=== PATIENT | male | born 1950 | race Caucasian/White ===

== ENCOUNTER 2021-08-21 09:33 | Outpatient (CLI) | payer MEDICARE, OTHER ==
--- NOTE | 2021-08-21 14:44 | XRAY Report ---
PROCEDURE: Shoulder 3 View LT INDICATIONS: LT SHOULDER PAIN TECHNIQUE: 3 views of the shoulder were acquired. COMPARISON: None. FINDINGS: Bones: No fractures or dislocations. No suspicious bony lesions. Visualized ribs appear intact. Soft tissues: No suspicious soft tissue calcifications. IMPRESSION: No acute osseous abnormality. Reviewed by: Jack Mcgrath MD on 08/21/2021 2:42 PM PDT Approved by: Jack Mcgrath MD on 08/21/2021 2:42 PM PDT Station ID: [id number]
== END 2021-08-21 09:34 | disposition home or self-care (01) ==
LOC: DI 09:33
PROVIDERS: ATTEND Physician Assistant
DX: M25.512 Pain in left shoulder (principal)

== ENCOUNTER 2021-12-07 15:55 | Outpatient (CLI) | payer MEDICARE, OTHER ==
--- NOTE | 2021-12-07 16:55 | XRAY Report ---
PROCEDURE: Ankle 3 View LT INDICATIONS: ANKLE JOINT PAIN, LEFT TECHNIQUE: 3 views of the ankle were acquired. COMPARISON: None. FINDINGS: Bones: Oblique fracture through distal fibular shaft is seen without significant displacement or angu lation of fracture site. No other fracture is noted. No dislocation. Ankle mortise is normally aligne d. No suspicious bony lesions. Soft tissues: Significant lateral ankle soft tissue swelling is seen. No tibiotalar joint effusion. Achilles tendon appears normal. IMPRESSION: Nondisplaced oblique fracture through distal fibular shaft with overlying soft tissue sw elling. No other fracture or dislocation. Intact ankle mortise. Reviewed by: Baldev Somers MD on 12/07/2021 4:54 PM PDT Approved by: Baldev Somers MD on 12/07/2021 4:54 PM PDT Station ID: [id number]
--- NOTE | 2021-12-07 18:26 | XRAY Report ---
PROCEDURE: Knee 3 View LT INDICATIONS: ANKLE JOINT PAIN, LEFT TECHNIQUE: 3 views of the left knee(s) were acquired. COMPARISON: None. FINDINGS: Bones: No fractures or dislocations. No suspicious bony lesions. Soft tissues: No joint effusion. No suspicious soft tissue calcifications. IMPRESSION: No fracture or dislocation. Reviewed by: Suni Cruz MD on 12/07/2021 5:25 PM MIRIAM Approved by: Suni Cruz MD on 12/07/2021 5:25 PM AKSOPHIA Station ID: [id number]
== END 2021-12-07 15:56 | disposition home or self-care (01) ==
LOC: DI 15:55
PROVIDERS: ATTEND Registered Nurse
DX: S82.435A Nondisplaced oblique fracture of shaft of left fibula, initial encounter for closed fracture (principal); M25.562 Pain in left knee

== ENCOUNTER 2021-12-14 09:36 | Outpatient (CLI) | payer MEDICARE, OTHER ==
--- NOTE | 2021-12-14 13:37 | XRAY Report ---
PROCEDURE: Ankle 3 View LT INDICATIONS: LEFT ANKLE FRACTURE TECHNIQUE: 3 views of the ankle were acquired. COMPARISON: 12/07/2021 FINDINGS: Bones: Minimally displaced spiral fracture of the distal fibula at the level of the syndesmosis is r edemonstrated. There is subtle widening of the lateral ankle mortise better seen on the current study . Wispy calcifications are present distal to the medial malleolus, possibly tiny cortical avulsions. Soft tissues: No tibiotalar joint effusion. Achilles tendon appears normal. IMPRESSION: 1. Possible slight widening of the lateral ankle mortise. 2. Minimally displaced spiral fracture of the distal fibula at the syndesmosis. Reviewed by: Suni Cruz MD on 12/14/2021 1:36 PM PDT Approved by: Suni Cruz MD on 12/14/2021 1:36 PM PDT Station ID: [id number]
== END 2021-12-14 09:37 | disposition home or self-care (01) ==
LOC: DI.WOS 09:36
PROVIDERS: ATTEND Orthopaedic Surgery
DX: S82.832D Other fracture of upper and lower end of left fibula, subsequent encounter for closed fracture with routine healing (principal)

== ENCOUNTER 2021-12-21 14:27 | Outpatient (CLI) | payer MEDICARE, OTHER ==
--- NOTE | 2021-12-21 16:46 | XRAY Report ---
PROCEDURE: Ankle 3 View LT INDICATIONS: LEFT ANKLE FRACTURE TECHNIQUE: 3 views of the ankle were acquired. COMPARISON: Left ankle radiographs 12/14/2021 FINDINGS: Redemonstrated mildly displaced acute oblique distal fibular fracture, fracture plane at the level of the tibial plafond . Alignment is similar to before. Ankle mortise appears symmetric. A plantar calc aneal spur is present. IMPRESSION: Similar appearance of the previously demonstrated lateral malleolus fracture. Reviewed by: Jack Mcgrath MD on 12/21/2021 4:45 PM PST Approved by: Jack Mcgrath MD on 12/21/2021 4:45 PM PST Station ID: [id number]
== END 2021-12-21 14:28 | disposition home or self-care (01) ==
LOC: DI.WOS 14:27
PROVIDERS: ATTEND Orthopaedic Surgery
DX: S82.62XD Displaced fracture of lateral malleolus of left fibula, subsequent encounter for closed fracture with routine healing (principal)

== ENCOUNTER 2022-01-23 14:51 | Outpatient (CLI) | payer MEDICARE, OTHER ==
--- NOTE | 2022-01-23 16:18 | XRAY Report ---
PROCEDURE: Ankle 3 View LT INDICATIONS: LEFT ANKLE FRACTURE TECHNIQUE: 3 views of the ankle were acquired. COMPARISON: 12/21/2021 FINDINGS: Bones: There is further healing of spiral fracture of the distal fibula at the syndesmosis with furth er blurring of the fracture plane and cloudlike periostitis, particularly seen posteriorly. Ankle mor tise remains intact. Unfused os trigonum. Calcaneal spurring. Soft tissues: No tibiotalar joint effusion. Achilles tendon appears normal. IMPRESSION: 1. Further visible healing of spiral distal fibular fracture. Reviewed by: Suni Cruz MD on 01/23/2022 4:17 PM PST Approved by: Suni Cruz MD on 01/23/2022 4:17 PM PST Station ID: [id number]
== END 2022-01-23 14:52 | disposition home or self-care (01) ==
LOC: DI.WOS 14:51
PROVIDERS: ATTEND Orthopaedic Surgery
DX: S82.65XD Nondisplaced fracture of lateral malleolus of left fibula, subsequent encounter for closed fracture with routine healing (principal)

== ENCOUNTER 2022-07-17 09:36 | Outpatient (CLI) | payer MEDICARE, BC ==
--- NOTE | 2022-07-17 10:29 | Sleep Patient Instructions ---
Sleep Center Visit Summary - Patient Visit Information Reason for Visit: Initial consult to establish care for PAP therapy - Patient Instructions Additional Instructions: You will continue with CPAP therapy with pressure set at 7-10 cmH2O. A supply prescription will be updated with your DME. We encourage you to continue to try to lose weight. Please follow up with the sleep care office in 1 year. - Clinic Information Contact[facility] [address] [place] [address] [email or web address] T: [phone]
--- NOTE | 2022-07-17 10:36 | SLEEP CARE CONSULTATION ---
Information from patient questionnaire entered by Dianne Pugh. I have reviewed and concur with the information entered by Dianne Pugh. This document represents the service I personally performed and the decisions made by me, Vianca Barton ARNP. History of Present Illness Service Date and Time: 07/17/2022 0936 Reason for Visit: New patient, Previously diagnosed sleep apnea, sleep apnea on CPAP therapy Chief Complaint: reports: Other (UPDATE SUPPLIES) Date of Onset: 20+YRS Usual bedtime: 1030PM Time it takes to fall asleep: 20-30 Snores at night: No Number of times waking at night: 1-2 Reasons for waking at night: reports: Bathroom Toss, Turn, or Twitch while sleeping: Yes Recalls having dreams: Yes Usually gets out of bed at: 930-10AM Feels refreshed in the morning: Yes Morning headache: No Sleepy or fatigued during the day: Yes Ever fallen asleep while driving: No Takes day naps: Yes Dreams during day naps: Yes Prior sleep studies: Yes Year and Where: 1999[place]? Additional HPI information: MARK DICKENS was previoualy diagnosed to have mild, AHI 16, obstructive sleep apnea-hypopnea syndrome and comes in today to establish care for CPAP therapy. - Parasomnia Symptoms Ever been unable to move upon waking from sleep: No Walks in sleep: No Talks in sleep: Yes Ever acted out dreams in sleep: Yes Ever felt weak in the knees when startled or emotional: No Bothered by creepy, crawly, restless sensations in legs: No Problems with memory or concentration: No CPAP Compliance Data - Data Reviewed with Patient Average duration of nightly device use: 9 hours Compliance rate %: 100 (pt states uses every night and with naps) Current pressure setting (cmH2O): 7-10 Average residual AHI: 0.2 Compliance data discussion: He has a Leena II that he purchased because of the recall. We were able to get limited data from the machine. He has been sent a replacement by [employer] but has not started using it. He gets his supplies from [employer] for the Leena. He is set up with [employer] for other supplies. He is using a Dreamwear nasal cushion, large cushion size, headgear medium. He does have back up supplies. Subjective Patient concerns: reports: dry mouth, nose, throat (occasional). denies: ae rophagia, mask discomfort, air blowing in eyes, mask leak noise, condensation in mask/hose, nasal congestion, epistaxis Observed to snore while using device: No Current pressure setting perceived as: comfortable On therapy, patient: reports: sleeping better, awakening more refreshed, being more awake and alert during the day, more rested overall. denies: drowsiness while driving Initial [place] Sleepiness Scale score: 3 (07/17/22) Past Medical History Past Medical History: reports: Diabetes, Stroke (unsure of timing, found out of the fact), Coronary Heart Disease, GERD, Other (ESSENTIAL TREMORS) Social History The patient's occupation is a RE. Patient is and lives in [place]. Have you smoked in the past 12 months: No Alcohol use: Yes Alcohol amount and frequency: 2GLASSES PER MONTH Caffeine use: Yes Caffeine amount and frequency: 1XDAILY Family History Family history of sleep disordered breathing: Yes Family Hx Sleep Apnea: Sibling: Sleep apnea - Treated Allergies and Home Medications Known drug allergies: No Drug allergies reviewed: Yes Home medication list reviewed: Yes (see updated list in EMR) Allergy and home medication list: Allergies No Known Drug Allergies Allergy (Verified 07/16/22 09:34) Review of Systems Weight loss over past 5 years: 20 Cardiovascular: denies: high blood pressure Gastrointestinal: reports: heartburn Urinary: reports: frequency Neurological: denies: headaches Psychiatric: denies: anxiety, depression Ear/Nose/Throat: reports: nasal congestion, injury to nose Musculoskeletal: reports: joint pain Immunologic: reports: sneezing Physical Exam Vital signs obtained and entered by: DIANNE Velázquez MA Blood Pressure: 98/60 (left arm) Cuff size: regular Heart Rate: 57 O2 Saturation: 98 Height: 6 ft 1 in Weight: 198 lb 6.4 oz Body Mass Index: 26.2 BMI Classification: Overweight Neck circumference: 16.25 Heart: regular rate and rhythm Lungs: clear bilaterally Impression and Plan 1. Obstructive Sleep Apnea-Hypopnea Syndrome, mild, with good treatment compliance and good apnea control. On CPAP therapy, the patient has better sleep quality and is more rested overall. Mark purchased a Leena II because his CPAP was on the recall with [employer]. He states about 4 months ago he received his new replacement from [employer] but he has not yet started using it. He wanted to wait until his appointment before he switched to the other machine. He also tells me he has a travel machine that he bought about 4 years ago that he uses on occasion. Patient's apnea severity and rationale for treatment to reduce apnea, improve sleep quality and reduce cardiovascular and cerebrovascular events was reviewed. I also reviewed the benefit of consistent device use of CPAP for cardiac disease, cerebrovascular disease, diabetes and gastric reflux. 2. Overweight, unspecified. Currently patients BMI is 26.2. He has been losing weight. Obesity increases the risk of apnea, CPAP pressure requirements and overall health risks especially cardiovascular and diabetes. Thus patient is advised to continue to try to lose weight. * Continue auto CPAP pressure at 7-10 cmH2O * Update supplies prescription * Notify me if snoring with mask or feeling that the pressure is too much or too little * Attempt to lose weight * Call this office if any problems using CPAP * Return for follow up in 1 year, or sooner if concerns arise Counseling Topics: Spare mask, Weight loss health impact Visit Type: In Office Time Spent with Patient (minutes): 31 Provider Statement: I spent 100% of the Face to Face Visit with the patient with greater than 50% spent counseling the patient and coordination of care.
[2022-07-17 10:38] VITALS: BP 98/60
== END 2022-07-17 09:37 | disposition home or self-care (01) ==
LOC: SC 09:36
PROVIDERS: ATTEND Nurse Practitioner Family
DX: G47.33 Obstructive sleep apnea (adult) (pediatric) (principal); E66.3 Overweight; Z68.26 Body mass index [BMI] 26.0-26.9, adult
CPT/HCPCS: 99203; G0463; 99212

== ENCOUNTER 2023-03-20 08:41 | Day surgery (SDC) | payer MEDICARE, BC ==
[2023-03-20] MEDS: LACTATED RINGERS 1,000 ML IV ONE ×2 (09:27→10:43)
[2023-03-20] MEDS ORDERED: PROPOFOL 500 MG/50 ML 0 MG/0 ML VIAL ONE (09:35)
--- NOTE | 2023-03-20 09:41 | ANESTHESIA ---
Pre-Anesthesia VS, & Labs - Diagnosis history of colon polyp - Procedure colonoscopy Height: 6 ft 1 in Weight (kg): 84.9 kg Body Mass Index: 24.7 BMI Classification: Normal - NPO >8 hours - Lab Results Current Lab Results: Laboratory Tests 03/20/23 09:18: POC Whole Bld Glucose 97 Lab results reviewed: Yes Home Medications and Allergies Home Medications: Ambulatory Orders Topiramate [Topiramate ER] 100 mg PO DAILY 03/13/23 metFORMIN [Glucophage] 850 mg PO BID 03/13/23 Clopidogrel Bisulfate [Plavix] 75 mg PO DAILY 11/30/15 Pantoprazole [Protonix] 40 mg PO DAILY 11/30/15 Aspirin [Vazalore] 81 mg PO DAILY 07/17/22 Primidone 600 mg PO DAILY 07/17/22 Rosuvastatin Calcium [Crestor] 20 mg PO DAILY 07/17/22 lisinopriL [Zestril] 5 mg PO DAILY 07/17/22 Topiramate [Topiramate ER] 100 mg PO DAILY 03/13/23 metFORMIN [Glucophage] 850 mg PO BID 03/13/23 Allergies/Adverse Reactions: Allergies Allergy/AdvReac Type Severity Reaction Status Date / Time No Known Drug Allergies Allergy Verified 07/17/22 09:43 Anes History & Medical History - Anesthetic History Anesthesia Complications: reports: No previous complications Family history of Anesthesia Complications: Denies Family history of Malignant Hyperthermia: Denies - Medical History Cardiovascular: reports: [place], Other (stents, had recent negative workup) Pulmonary: reports: Sleep apnea, CPAP use Gastrointestinal: reports: GERD, Colon polyps Urinary: reports: None Neuro: reports: Tremors Musculoskeletal: reports: None Endocrine/Autoimmune: reports: Type 2 diabetes Skin: reports: None Smoking Status: Never smoker Psychosocial: reports: No issues indicated History of Cancer?: No - Surgical History General: reports: Colonoscopy Orthopedic: reports: Other Exam General: Alert, Oriented x3, Cooperative, No acute distress Dental: WNL Mouth Openin Fingerbreadth Neck Mobility: Normal Mallampati classification: II Thyromental Distance: 4-6 cm Mental/Cognitive Status: Alert/Oriented X3, Normal for patient Plan Anesthesia Type: General Consent for Procedure(s) Verified and Reviewed: Yes Code Status: Attempt Resuscitation ASA classification: 3-Severe systemic disease Is this case an emergency?: No
[2023-03-20] MEDS ORDERED: PROPOFOL 500 MG/50 ML 500 MG/50 ML VIAL ONE (09:53)
[2023-03-20 11:15] VITALS: BP 111/74; O2SAT 99
--- NOTE | 2023-03-20 14:19 | ANESTHESIA POST OP EVALUATION ---
Anesthesia Post Eval - Post Anesthesia Eval Vitals: Last Vital Signs Temp 36.0 C L 03/20/23 11:00 Pulse 58 L 03/20/23 11:00 Resp 16 03/20/23 11:00 BP 111/74 03/20/23 11:00 Pulse Ox 99 03/20/23 11:00 O2 Flow Rate CV Function Including HR & BP: Stable Pain Control: Satisfactory Nausea & Vomiting: Negative Mental Status: Baseline Respiratory Status: Airway Patent Hydration Status: Satisfactory Anesthesia Complications: None
== END 2023-03-20 08:42 | disposition home or self-care (01) ==
LOC: SDS 08:41
PROVIDERS: ATTEND Surgery
PROC: 0DBL8ZZ Excision of Transverse Colon, Via Natural or Artificial Opening Endoscopic (ICD-10-PCS; 2023-03-20)
PROC: 0DBN8ZZ Excision of Sigmoid Colon, Via Natural or Artificial Opening Endoscopic (ICD-10-PCS; 2023-03-20)
PROC: 0DBM8ZZ Excision of Descending Colon, Via Natural or Artificial Opening Endoscopic (ICD-10-PCS; principal; 2023-03-20 11:00)
DX: Z12.11 Encounter for screening for malignant neoplasm of colon (principal); D12.5 Benign neoplasm of sigmoid colon; D12.3 Benign neoplasm of transverse colon; D12.4 Benign neoplasm of descending colon; K57.30 Diverticulosis of large intestine without perforation or abscess without bleeding; I25.2 Old myocardial infarction; I25.10 Atherosclerotic heart disease of native coronary artery without angina pectoris; E11.9 Type 2 diabetes mellitus without complications; G47.33 Obstructive sleep apnea (adult) (pediatric); Z79.84 Long term (current) use of oral hypoglycemic drugs
CPT/HCPCS: 45385; J7120

== ENCOUNTER 2023-07-23 13:37 | Outpatient (CLI) | payer MEDICARE, BC ==
--- NOTE | 2023-07-23 14:21 | Sleep Patient Instructions ---
Sleep Center Visit Summary - Patient Visit Information Reason for Visit: Annual follow-up - Patient Instructions Additional Instructions: You will continue with CPAP therapy with pressure set at 7-10 cmH2O. A supply prescription will be updated with your DME. Please follow up with the sleep care office in 1 year. - Clinic Information Contact: [facility] [address] [place] [address] [email or web address] T: [phone]
--- NOTE | 2023-07-23 14:25 | SLEEP CARE CONSULTATION ---
Information from patient questionnaire entered by Dianne Pugh. I have reviewed and concur with the information entered by Dianne Pugh. This document represents the service I personally performed and the decisions made by me, Vianca Barton ARNP. History of Present Illness Service Date and Time: 07/23/2023 1337 Previous diagnosis: Moderate, Obstructive Sleep Apnea-Hypopnea Syndrome AHI: 16 (in 04/28/97) Reason for follow up: annual (LAST SEEN 07/2022 NEED CPAP) Equipment type: CPAP (Dreamstation, recertified) Equipment obtained from: [employer] (getting supplies) Mask style: Nasal Mask brand: [employer]ironics (Dreamwear) Backup mask available: Yes Last cushion change: 1 week Prior sleep studies: Yes Year and Where: 1997 [place]? HPI additional information: MARK DICKENS was diagnosed to have moderate, AHI 16, obstructive sleep apnea-hypopnea syndrome and returned today for CPAP therapy annual follow-up. Sleep Study - Results Prior sleep studies: Yes Year and Where: 1997 [place]? CPAP Compliance Data - Data Reviewed with Patient Average duration of nightly device use: 9 hours 47 mins Compliance rate %: 98.4 (01/20/2023-07/22/2023; 181/184 days used) Current pressure setting (cmH2O): 4-20 (should be 7-10) Humidity settin Heated hose settin Average residual AHI: 2.4 Average large leak: 46 secs Compliance data discussion: He has a travel CPAP, [employer]. Subjective Missed days of use due to: reports: travel (for 3 days) Patient concerns: denies: aerophagia, mask discomfort, air blowing in eyes, mask leak noise, condensation in mask/hose, nasal congestion, dry mouth, nose, throat , epistaxis Observed to snore while using device: No Current pressure setting perceived as: comfortable On therapy, patient: reports: sleeping better, awakening more refreshed, being more awake and alert during the day, more rested overall. denies: drowsiness while driving Initial [place] Sleepiness Scale score: 3 (07/17/22) Current [place] Sleepiness Scale score: 3 Allergies and Home Medications Known drug allergies: No Drug allergies reviewed: Yes Home medication list reviewed: Yes (no changes) Allergy and home medication list: Allergies No Known Drug Allergies Allergy (Verified 07/19/23 13:01) Review of Systems Review of systems same as previous: Yes (cardiac disease, GERD, Apnea, Essential tremors) Physical Exam Vital signs obtained and entered by: VIANCA AVALOS Blood Pressure: 105/62 Cuff size: regular (left arm) Heart Rate: 55 O2 Saturation: 95 Height: 6 ft 1 in Weight: 197 lb 3.2 oz Weight change since last visit: 1 lb loss Body Mass Index: 26.0 BMI Classification: Overweight Impression and Plan 1. Obstructive Sleep Apnea-Hypopnea Syndrome, moderate, with good treatment compliance and god apnea control. On CPAP therapy, the patient has better sleep quality and is more rested overall. He says the only missing days was when he went on vacation and did not take the battery for his travel machine because he was flying and and think he could protect the battery on the plane. Patient has significant improvement of their sleep apnea and is satisfied with current CPAP therapy. Patient denies problems with oral dryness, nasal congestion, epistaxis, skin irritation or aerophagia. Patient's apnea severity and rationale for treatment to reduce apnea, improve sleep quality and reduce cardiovascular and cerebrovascular events was reviewed. I also reviewed the benefit of consi stent device use of CPAP for hypertension, cardiac disease, cerebrovascular disease and gastric reflux. 2. Overweight, unspecified. Currently patients BMI is 26. Obesity increases the risk of apnea, CPAP pressure requirements and overall health risks especially cardiovascular and diabetes. Thus patient is advised to maintain healthy weight. * Continue auto CPAP pressure at 7-10 cmH2O * Update supply prescription * Notify me if snoring with mask or feeling that the pressure is too much or too little * Maintain a healthy weight * Call this office if any problems using CPAP * Return for follow up in 12 months, or sooner if concerns arise Counseling Topics: Spare mask, Weight loss health impact Prescriptions: Device supplies Follow up with Sleep Care in: 1 year Visit Type: In Office Time Spent with Patient (minutes): 23 Provider Statement: I spent 100% of the Face to Face Visit with the patient with greater than 50% spent counseling the patient and coordination of care.
[2023-07-23 14:26] VITALS: BP 105/62; O2SAT 95
== END 2023-07-23 13:38 | disposition home or self-care (01) ==
LOC: SC 13:37
PROVIDERS: ATTEND Nurse Practitioner Family
DX: G47.33 Obstructive sleep apnea (adult) (pediatric) (principal); E66.3 Overweight; Z68.26 Body mass index [BMI] 26.0-26.9, adult
CPT/HCPCS: 99213; G0463; 99212